=== PATIENT | male | born 1950 | race Caucasian/White ===

== ENCOUNTER 2021-07-20 18:46 | Emergency (ER) | payer MEDICARE, OTHER ==
[2021-07-20 18:55] VITALS: BP 155/71
[2021-07-20] MEDS ORDERED: GLUCAGON 1 MG/ML VIAL IVP STA (19:04)
--- NOTE | 2021-07-20 19:06 | ED Physician Documentation ---
History of Present Illness - Stated complaint Stated Complaint: ABSTRUCTION IN THROAT - Chief complaint Chief Complaint: General - History obtained from History obtained from: Patient - Additonal information Additional information: Earlier this year he had esophageal food impaction related to a jalapeno. Required endoscopic fix. No report to him of any abnormalities on endoscopy subsequently. Kaity feels like he has meat stuck in the chest and cannot swallow his secretions. Phonation is normal. This is only the 2nd time this is happened. Review of Systems Ten Systems: 10 systems reviewed and negative Constitutional: reports: Reviewed and negative Respiratory: reports: Reviewed and negative PD PAST MEDICAL HISTORY - Past Medical History Past Medical History: No - Allergies Allergies/Adverse Reactions: Allergies Allergy/AdvReac Type Severity Reaction Status Date / Time No Known Drug Allergies Allergy Verified 07/20/21 18:50 - Family History Family history: reports: Non contributory PD ED PE NORMAL - Vitals Vital signs reviewed: Yes - General General: Alert and oriented X 3 (He is spitting up his secretions, phonation is normal, he is retching.) - HEENT HEENT: PERRL, EOMI - Neck Neck: Supple, no meningeal sign, No bony TTP - Cardiac Cardiac: RRR, No murmur - Respiratory Respiratory: No respiratory distress, Clear bilaterally - Abdomen Abdomen: Soft, Non tender - Back Back: No CVA TTP, No spinal TTP - Derm Derm: Normal color, Warm and dry - Extremities Extremities: No edema, No calf tenderness / cord - Neuro Neuro: Alert and oriented X 3, Normal speech Results - Vitals Vitals: Vital Signs - 24 hr 07/20/21 18:50 Temperature 36.8 C Heart Rate 62 Respiratory 18 Rate Blood Pressure 155/71 H O2 Saturation 99 Oxygen O2 Source Room air PD MEDICAL DECISION MAKING - ED course ED course: On initial evaluation this gentleman clearly has a esophageal food impaction, ordered glucagon, but prior to the nurse placing the IV the obstruction resolved and tolerating oral liquids no with no more pain. Departure - Departure Disposition: 01 Home, Self Care Clinical Impression: Esophageal obstruction due to food impaction Condition: Good Record reviewed to determine appropriate education?: Yes Instructions: ED Foreign Body Esophageal Rslv Comments: Return if worse, chew or chop your food well and try to avoid big chunks of meat. Follow-up with your doctor on return home.
== END 2021-07-20 19:49 | disposition home or self-care (01) ==
LOC: ED 18:46
DX: T18.128A Food in esophagus causing other injury, initial encounter (principal); K22.2 Esophageal obstruction
CPT/HCPCS: 99281; 99282